=== PATIENT | male | born 2000 ===

== ENCOUNTER → 2019-02-20 | Outpatient (CLI) | payer SELFPAY ==
[2019-02-20 17:38] LABS: CHLAM PCR NOT DETECTED (NOT DETECT); GON PCR NOT DETECTED (NOT DETECT)
== END ==
LOC: LAB 16:01
PROVIDERS: ATTEND Nurse Practitioner Family
DX: R10.9 Unspecified abdominal pain (principal); R31.9 Hematuria, unspecified
CPT/HCPCS: 87086; 87491; 87591